=== PATIENT | female | born 2000 | race Caucasian/White ===

== ENCOUNTER → 2019-01-08 | Outpatient (CLI) | payer BC ==
--- NOTE | 2019-01-11 01:44 | MR ---
EXAMINATION TYPE: MR knee LT wo con DATE OF EXAM: 01/08/2019 COMPARISON: None HISTORY: Left Knee pain with swelling x 6 months, XRays done at [facility] 08/2018 TECHNIQUE: Multiplanar, multisequence imaging of the left knee is performed without IV contrast. FINDINGS: The medial and lateral menisci appear intact. Anterior and posterior cruciate ligaments are intact. T he collateral ligaments are intact. There is very small knee joint effusion. I see no bony destructiv e process. There is no evidence of a fracture. There is no evidence of a soft tissue mass. Articular cartilage appears intact. IMPRESSION: Small joint effusion. No evidence of ligamentous or meniscal tear.
== END | disposition home or self-care (01) ==
LOC: RADMRIMAIN 16:40
PROVIDERS: ATTEND Family Medicine
DX: M25.462 Effusion, left knee (principal)

== ENCOUNTER → 2021-06-27 | Outpatient (CLI) | payer BC ==
--- NOTE | 2021-06-28 09:22 | MM ---
Reason for exam: clinical finding. Baseline mammogram. History: Taking hormonal contraceptives for 10 years. Physical Findings: Nurse Summary: size changer last year, larger/discharge from area of concern, patient reports 3rd nipple (nurse db). [facility] Diagnostic Mammo LT w CAD LM view(s) were taken of the left breast. The breast tissue is heterogeneously dense. This may lower the sensitivity of mammography. Focal asymmetry inferior LM view. These results were verbally communicated with the patient and result sheet given to the patient on 06/27/21. ASSESSMENT: Negative, BI-RAD 1 RECOMMENDATION: Routine screening mammogram of both breasts at age 33.
--- NOTE | 2021-06-28 09:23 | USB ---
Reason for exam: clinical finding. History: Taking hormonal contraceptives for 10 years. Physical Findings: Nurse Summary: roll changer last year, larger/discharge from area of concern, patient reports 3rd nipple (nurse db). US Breast LT Left complete breast ultrasound includes all four quadrants, the retroareolar region and axilla. Finding demonstrates no cystic or solid lesion seen. These results were verbally communicated with the patient and result sheet given to the patient on 06/27/21. ASSESSMENT: Negative, BI-RAD 1 RECOMMENDATION: Routine screening mammogram of both breasts at age 33.
== END | disposition home or self-care (01) ==
LOC: RADMAMWWP 13:44
PROVIDERS: ATTEND Family Medicine
DX: R92.2 Inconclusive mammogram (principal)
CPT/HCPCS: 77065